=== PATIENT | female | born 1980 | race Caucasian/White ===

== ENCOUNTER 2020-08-16 16:18 | Emergency (ER) | payer MEDICAID ==
[~2020-08-16] VITALS: Ht 162.6 cm; Wt 70.5 kg
[2020-08-16 17:12] LABS: COVID AG,FIA SOURCE NASOPHARYNGEAL
[2020-08-16 17:23] LABS: BASOPHILS % (AUTO) 0.4 % (0.0-2.0); EOSINOPHILS % (AUTO) 1.8 % (1.0-6.0); HEMOGLOBIN 12.8 g/dL (12.0-16.0); LYMPHOCYTES # (AUTO) 1.5 K/uL (1.0-4.8); LYMPHOCYTES % (AUTO) 27.2 % (22.0-44.0); MEAN CORPUSCULAR HGB CONC 31.2 G/dL (31.0-37.0); MEAN CORPUSCULAR VOLUME 71 fL (80-100); MONOCYTES # (AUTO) 0.5 K/uL (0.1-1.0); MONOCYTES % (AUTO) 9.2 % (2.0-9.0); NEUTROPHILS # (AUTO) 3.4 K/uL (1.8-7.7); NEUTROPHILS % (AUTO) 61.4 % (40.0-70.0); PLATELET COUNT (AUTO) 149 K/uL (150-450); RED CELL DISTRIBUTION WIDTH 20.2 % (11.5-14.5)
[2020-08-16 17:34] LABS: CALCIUM, TOTAL 8.6 mg/dL (8.8-10.5); CARBON DIOXIDE 23 mmol/L (22-29); GLOMERULAR FILTR. RATE CALC > 60 mL/min (>60); GLUCOSE,RANDOM 112 mg/dL (70-110); UREA NITROGEN, BLOOD 21 mg/dL (7-18)
[2020-08-16 17:45] LABS: ALANINE AMINOTRANSFERASE 72 U/L (12-78); ALBUMIN 3.2 g/dL (3.4-5.0); ALKALINE PHOSPHATASE 146 U/L (46-116); ASPARTATE AMINOTRANSFERASE 97 U/L (15-37); BILIRUBIN,TOTAL 0.9 mg/dL (0.1-1.0); HCG,QUANTITATIVE 1 mIU/mL (0-6); TOTAL PROTEIN, SERUM 7.8 g/dL (6.4-8.2)
[2020-08-16] MEDS ORDERED: NITROGLYCERIN 50 MG/D5% WATER 250 ML IV PRN (17:45)
[2020-08-16 17:47] LABS: B-TYPE NATRIURETIC PEPTIDE 606 pg/mL (0-100)
[2020-08-16 17:49] LABS: ANION GAP 11 mmol/L (8-16); CHLORIDE 105 mmol/L (98-107); POTASSIUM 4.6 mmol/L (3.5-5.1); SODIUM SERUM 139 mmol/L (136-145)
[2020-08-16 17:52] VITALS: BP 163/111
[2020-08-16] MEDS ORDERED: FUROSEMIDE 40 MG/4 ML VIAL IVP ONE (18:00)
[2020-08-16] MEDS ORDERED: IOHEXOL 350 MG/ML 75 ML VIAL ONE (18:21)
[2020-08-16] MEDS ORDERED: SODIUM CHLORIDE 0.9% 100 ML ONE (18:21)
[2020-08-16] MEDS ORDERED: ACETAMINOPHEN 325 MG TABLET PO PRN (19:00)
[2020-08-16] MEDS ORDERED: ONDANSETRON HCL 4 MG/2 ML VIAL IVP PRN (19:00)
== END 2020-08-16 19:08 | disposition left against medical advice (07) ==
LOC: EMS 16:38
DX: I11.0 Hypertensive heart disease with heart failure (principal); I50.9 Heart failure, unspecified; F17.210 Nicotine dependence, cigarettes, uncomplicated; Z20.822 Contact with and (suspected) exposure to COVID-19
CPT/HCPCS: 36415; 71045; 80053; 83880; 84484; 84702; 85025; 85379; 87426; 93005; 96374; 99291; A9575; J1940; J3490; J7050

== ENCOUNTER 2020-08-30 22:41 | Emergency (ER) | payer MEDICAID ==
[~2020-08-30] VITALS: Ht 162.6 cm; Wt 79.0 kg
[2020-08-30 23:33] LABS: SOURCE, BLOOD GAS ARTERIAL; TEMPERATURE, FAHRENHEIT, BG 98.6 FAHREN (96.0-98.6)
[2020-08-30] MEDS ORDERED: NITROGLYCERIN 2% (1 GM=INCH) PACKET TP ONE (23:45)
[2020-08-30] MEDS ORDERED: ASPIRIN 81 MG CHEWABLE TABLET PO ONE (23:45)
[2020-08-30 23:46] LABS: ABG A-A DIFF O2 617.4 mmHg (10-20.0); ABG BASE EXCESS -3.2 mmol/L (-2.0-3.0); ABG CARBOXYHEMOGLOBIN 0.9 % (0.0-1.5); ABG HCO3 22.7 mmol/L (22.0-26.0); ABG METHEMOGLOBIN 0.2 % (0.0-1.5); ABG OXYGEN CONTENT 15.7 mL/dL (15.0-23.0); ABG OXYGEN SATURATION 93.3 % (95.0-98.0); ABG OXYHEMOGLOBIN 92.3 % (94.0-100.0); ABG PCO2 28 mmHg (35-45); ABG PH 7.481 (7.35-7.450); ABG TOTAL HEMOGLOBIN 12.1 G/dL (12.0-18.0); O2 DEVICE,BLOOD GAS NRB (ROOM AIR); PO2, ARTERIAL BG 67.8 mmHg (88.0-96.0); SITE, BLOOD GAS RT BRACHIAL
[2020-08-30 23:48] LABS: BASOPHILS % (AUTO) 0.2 % (0.0-2.0); EOSINOPHILS % (AUTO) 2.2 % (1.0-6.0); HEMATOCRIT 37.6 % (36-46); HEMOGLOBIN 11.6 g/dL (12.0-16.0); LYMPHOCYTES # (AUTO) 2.5 K/uL (1.0-4.8); LYMPHOCYTES % (AUTO) 34.2 % (22.0-44.0); MEAN CORPUSCULAR HEMOGLOBIN 21.6 pg (26.0-34.0); MEAN CORPUSCULAR HGB CONC 30.8 G/dL (31.0-37.0); MEAN CORPUSCULAR VOLUME 70 fL (80-100); MONOCYTES # (AUTO) 0.9 K/uL (0.1-1.0); MONOCYTES % (AUTO) 12.8 % (2.0-9.0); NEUTROPHILS # (AUTO) 3.7 K/uL (1.8-7.7); NEUTROPHILS % (AUTO) 50.6 % (40.0-70.0); PLATELET COUNT (AUTO) 128 K/uL (150-450); RED BLOOD CELL COUNT(AUTO) 5.34 MIL/uL (4.00-5.20); RED CELL DISTRIBUTION WIDTH 19.9 % (11.5-14.5)
[2020-08-30 23:55] LABS: COVID AG,FIA SOURCE NASOPHARYNGEAL
[2020-08-30 23:58] LABS: ANION GAP 12 mmol/L (8-16); CALCIUM, TOTAL 8.2 mg/dL (8.8-10.5); CARBON DIOXIDE 20 mmol/L (22-29); CHLORIDE 107 mmol/L (98-107); CREATININE 0.81 mg/dL (0.60-1.30); GLOMERULAR FILTR. RATE CALC > 60 mL/min (>60); GLUCOSE,RANDOM 82 mg/dL (70-110); POTASSIUM 3.7 mmol/L (3.5-5.1); SODIUM SERUM 139 mmol/L (136-145); UREA NITROGEN, BLOOD 24 mg/dL (7-18)
[2020-08-31 00:03] LABS: INR 1.2 (0.9-1.1); PROTHROMBIN TIME 12.6 SEC (9.4-11.6)
[2020-08-31 00:05] LABS: B-TYPE NATRIURETIC PEPTIDE 651 pg/mL (0-100)
[2020-08-31 00:07] LABS: LACTIC ACID 1.5 mmol/L (0.4-2.0)
[2020-08-31 00:23] LABS: ALANINE AMINOTRANSFERASE 53 U/L (12-78); ALBUMIN 2.8 g/dL (3.4-5.0); ALKALINE PHOSPHATASE 131 U/L (46-116); ASPARTATE AMINOTRANSFERASE 68 U/L (15-37); BILIRUBIN,TOTAL 0.9 mg/dL (0.1-1.0); CREATINE KINASE, TOTAL ONLY 176 U/L (26-192); TOTAL PROTEIN, SERUM 6.9 g/dL (6.4-8.2)
[2020-08-31] MEDS ORDERED: FUROSEMIDE 40 MG/4 ML VIAL IVP ONE (00:45)
[2020-08-31] MEDS ORDERED: NITROGLYCERIN 0.4 MG SUBLINGUAL TABLET #25 SL ONE (00:45)
[2020-08-31] MEDS ORDERED: HydrALAZINE HCL 20 MG/ML VIAL IVP ONE ×2 (01:00→01:30)
[2020-08-31] MEDS ORDERED: ONDANSETRON HCL 4 MG/2 ML VIAL IVP ONE (01:15)
[2020-08-31] MEDS ORDERED: MORPHINE SULFATE 4 MG/ML SYRINGE IVP ONE (01:15)
[2020-08-31 01:16] LABS: INFLUENZA TYPE A NEGATIVE FOR TYPE A (NEGATIVE); INFLUENZA TYPE B NEGATIVE FOR TYPE B (NEGATIVE)
[2020-08-31 01:37] LABS: APPEARANCE,URINE CLEAR (CLEAR); BILIRUBIN,URINE NEGATIVE (NEGATIVE); GLUCOSE, URINE (UA) NEGATIVE (NEGATIVE); KETONES,URINE NEGATIVE (NEGATIVE); LEUKOCYTE ESTERASE ,URINE SMALL (NEGATIVE); NITRATE,URINE NEGATIVE (NEGATIVE); OCCULT BLOOD,URINE TRACE (NEGATIVE); PROTEIN,URINE NEGATIVE (NEGATIVE)
[2020-08-31 01:47] LABS: BACTERIA,URINE Few /HPF (None Seen); RBC,URINE 0-2 /HPF (0-2); SQUAMOUS EPITHELIAL CELL,UR Rare /LPF (None Seen)
[2020-08-31] MEDS ORDERED: SODIUM CHLORIDE 0.9% 0 ML ONE (01:51)
[2020-08-31] MEDS ORDERED: IOHEXOL 350 MG/ML 100 ML VIAL ONE (01:51)
[2020-08-31] MEDS ORDERED: ASPIRIN 81 MG CHEWABLE TABLET PO SCH (02:30)
[2020-08-31] MEDS ORDERED: ACETAMINOPHEN 325 MG TABLET PO PRN (02:30)
[2020-08-31] MEDS ORDERED: DILTIAZEM HCL 5 MG/ML 5 ML VIAL IVP ONE (02:30)
[2020-08-31] MEDS ORDERED: ONDANSETRON HCL 4 MG/2 ML VIAL IVP PRN (02:30)
[2020-08-31 02:39] LABS: AMPHET/METH SCREEN,URINE POSITIVE (NEGATIVE); BARBITURATE SCREEN, URINE NEGATIVE (NEGATIVE); BENZODIAZEPINES SCREEN,URINE NEGATIVE (NEGATIVE); CANNABINOID SCREEN,URINE NEGATIVE (NEGATIVE); COCAINE SCREEN,URINE NEGATIVE (NEGATIVE); METHADONE SCREEN, URINE NEGATIVE (NEGATIVE); OPIATE SCREEN,URINE NEGATIVE (NEGATIVE)
[2020-08-31 02:42] LABS: PHENCYCLIDINE SCREEN,URINE NEGATIVE (NEGATIVE)
[2020-08-31 03:48] LABS: D-DIMER 0.45 mg/L FEU (0.00-0.50)
[2020-08-31 04:20] VITALS: BP 157/97
[2020-08-31] MEDS ORDERED: HEPARIN SODIUM,PORCINE 5,000 UNITS/ML VIAL SQ SCH (08:00)
[2020-08-31] MEDS ORDERED: FUROSEMIDE 40 MG/4 ML VIAL IVP SCH (09:00)
== END 2020-08-31 04:25 | disposition left against medical advice (07) ==
LOC: EMS 22:43 → UNDOADMIN 08-31 02:25 → ICU 08-31 02:25 → 5S 08-31 02:25 → EMS 08-31 04:25
DX: I11.0 Hypertensive heart disease with heart failure (principal); I50.9 Heart failure, unspecified; R06.89 Other abnormalities of breathing; F17.210 Nicotine dependence, cigarettes, uncomplicated; Z20.822 Contact with and (suspected) exposure to COVID-19
CPT/HCPCS: 36415; 36600; 71045; 80053; 80307; 81001; 82550; 82805; 83605; 83880; 84484; 85025; 85379; 85610; 85730; 87040; 87426; 87804; 93005; 96374; 96375; 96376; 99291; J0360; J1940; J2270; J2405; J3490; U0003; A9575; J7050

== ENCOUNTER 2024-01-31 13:00 | Inpatient (IN) | payer OTHER ==
[~2024-01-31] VITALS: Ht 162.6 cm; Wt 76.5 kg
[~2024-01-31 13:00] MED LIST: ALBU18HF12 PO; ASPI-1450 PO; ATOR20TA65 PO; CARV6 PO; FLUT1DIS6 PO; FOLI-130 PO; FURO40TA5 PO; ISOS30TA92 PO; PANT40TA54 PO; POTA-206 PO; SILD20TA14 PO; THIA100T80 PO; TRAZ-252 PO
[2024-01-31 13:44] LABS: BASOPHILS % (AUTO) 0.3 % (0.0-2.0); EOSINOPHILS % (AUTO) 0.9 % (1.0-6.0); HEMATOCRIT 51.4 % (36-46); HEMOGLOBIN 16.9 g/dL (12.0-16.0); LYMPHOCYTES # (AUTO) 1.8 K/uL (1.0-4.8); LYMPHOCYTES % (AUTO) 31.5 % (22.0-44.0); MEAN CORPUSCULAR HEMOGLOBIN 30.9 pg (26.0-34.0); MEAN CORPUSCULAR HGB CONC 32.9 G/dL (31.0-37.0); MEAN CORPUSCULAR VOLUME 94 fL (80-100); MONOCYTES # (AUTO) 0.6 K/uL (0.1-1.0); MONOCYTES % (AUTO) 10.1 % (2.0-9.0); NEUTROPHILS # (AUTO) 3.2 K/uL (1.8-7.7); NEUTROPHILS % (AUTO) 57.2 % (40.0-70.0); PLATELET COUNT (AUTO) 112 K/uL (150-450); RED BLOOD CELL COUNT(AUTO) 5.47 MIL/uL (4.00-5.20); RED CELL DISTRIBUTION WIDTH 16.3 % (11.5-14.5); WHITE BLOOD COUNT (AUTO) 5.6 K/uL (4.5-11.0)
[2024-01-31] MEDS: FUROSEMIDE 20 MG/2 ML VIAL IVP ONE (13:53)
[2024-01-31 13:56] LABS: COVID AG,FIA SOURCE NASAL SWAB
[2024-01-31 14:04] LABS: CALCIUM, TOTAL 8.7 mg/dL (8.8-10.5); CREATININE 1.21 mg/dL (0.60-1.30); POTASSIUM 3.9 mmol/L (3.5-5.1); TROPONIN I-HIGH SENSITIVITY 65 ng/L (<51)
[2024-01-31 14:17] LABS: SARS-COV2 (COVID) ANTIGEN,FIA Negative (Negative)
[2024-01-31 14:18] LABS: INFLUENZA TYPE A NEGATIVE FOR TYPE A (NEGATIVE); INFLUENZA TYPE B NEGATIVE FOR TYPE B (NEGATIVE)
[2024-01-31 14:28] LABS: ALBUMIN 3.4 g/dL (3.4-5.0); BILIRUBIN,TOTAL 2.5 mg/dL (0.1-1.0); TOTAL PROTEIN, SERUM 7.9 g/dL (6.4-8.2)
[2024-01-31 14:47] LABS: MAGNESIUM 1.9 mg/dL (1.80-2.40)
[2024-01-31] MEDS: ASPIRIN 81 MG CHEWABLE TABLET PO ONE (15:50)
[2024-01-31] MEDS ORDERED: ALBUTEROL SULFATE 2.5 MG/0.5 ML NEB SOLUTION NEB PRN (16:00)
[2024-01-31] MEDS ORDERED: IPRATROPIUM BROMIDE 0.5 MG/2.5 ML NEB SOLUTION NEB PRN (16:00)
[2024-01-31 16:16] LABS: TROPONIN I-HIGH SENSITIVITY 52 ng/L (<51)
[2024-01-31 16:40] VITALS: PULSE 95; RESP 20; O2SAT 92
[2024-01-31] MEDS ORDERED: 0.9% SODIUM CHLORIDE 10 ML SYRINGE IVP ONE (17:40)
[2024-01-31] MEDS ORDERED: SODIUM CHLORIDE 0.9% 0 ML ONE (17:40)
[2024-01-31] MEDS ORDERED: IOHEXOL 350 MG/ML 100 ML VIAL ONE (17:40)
[2024-01-31] MEDS: BENZONATATE 100 MG CAPSULE PO SCH (17:44)
[2024-01-31] MEDS: MethylPREDNISolone SOD SUCC 125 MG/2 ML VIAL IVP SCH (17:44)
[2024-01-31] MEDS: SILDENAFIL CITRATE 20 MG TABLET PO SCH (17:44)
[2024-01-31] MEDS: IPRATROPIUM BROMIDE 0.5 MG/2.5 ML NEB SOLUTION NEB SCH (20:00)
[2024-01-31] MEDS: ALBUTEROL SULFATE 2.5 MG/0.5 ML NEB SOLUTION NEB SCH (20:00)
[2024-01-31] MEDS: GuaiFENesin SR 600 MG ER TABLET PO SCH (20:42)
[2024-01-31] MEDS: FUROSEMIDE 20 MG/2 ML VIAL IVP SCH (20:42)
[2024-01-31] MEDS: ATORVASTATIN CALCIUM 20 MG TABLET PO SCH (20:42)
[2024-01-31] MEDS: TraZODone HCL 50 MG TABLET PO SCH (20:42)
[2024-01-31] MEDS: CARVEDILOL 12.5 MG TABLET PO SCH (21:47)
[2024-02-01] VITALS (11 sets, daily range): BP systolic 92–113; BP diastolic 53–75; PULSE 61–71; RESP 13–23; TEMP 97.1–98.7; O2SAT 90–96
[2024-02-01 07:18] LABS: BASOPHILS % (AUTO) 0.3 % (0.0-2.0); EOSINOPHILS % (AUTO) 0.2 % (1.0-6.0); HEMATOCRIT 47.4 % (36-46); LYMPHOCYTES # (AUTO) 0.7 K/uL (1.0-4.8); LYMPHOCYTES % (AUTO) 19.2 % (22.0-44.0); MEAN CORPUSCULAR HEMOGLOBIN 31.4 pg (26.0-34.0); MEAN CORPUSCULAR HGB CONC 33.8 G/dL (31.0-37.0); MEAN CORPUSCULAR VOLUME 93 fL (80-100); MONOCYTES # (AUTO) 0.1 K/uL (0.1-1.0); MONOCYTES % (AUTO) 2.1 % (2.0-9.0); NEUTROPHILS % (AUTO) 78.2 % (40.0-70.0); PLATELET COUNT (AUTO) 97 K/uL (150-450); RED CELL DISTRIBUTION WIDTH 16.2 % (11.5-14.5); WHITE BLOOD COUNT (AUTO) 3.9 K/uL (4.5-11.0)
[2024-02-01 07:32] LABS: ANION GAP 9 mmol/L (8-16); CALCIUM, TOTAL 8.6 mg/dL (8.8-10.5); CARBON DIOXIDE 23 mmol/L (22-29); CHLORIDE 104 mmol/L (98-107); CREATININE 0.98 mg/dL (0.60-1.30); GLOMERULAR FILTR. RATE CALC > 60 mL/min (>60); GLUCOSE,RANDOM 135 mg/dL (70-110); POTASSIUM 3.6 mmol/L (3.5-5.1); SODIUM SERUM 136 mmol/L (136-145); UREA NITROGEN, BLOOD 26 mg/dL (7-18)
[2024-02-01] MEDS: THIAMINE 100 MG TABLET PO SCH (08:24)
[2024-02-01] MEDS: ASPIRIN 81 MG CHEWABLE TABLET PO SCH (08:25)
[2024-02-01] MEDS: ISOSORBIDE MONONITRATE 30 MG ER TABLET PO SCH (08:25)
[2024-02-01] MEDS ORDERED: MORPHINE SULFATE 2 MG/ML SYRINGE IVP PRN (11:15)
[2024-02-01] MEDS ORDERED: MAGNESIUM HYDROXIDE SUSPENSION 30 ML UDCUP PO PRN (11:15)
[2024-02-01] MEDS ORDERED: BISACODYL 10 MG RECTAL RECTAL SUPPOSITORY PR PRN (11:15)
[2024-02-01] MEDS ORDERED: HYDROCODONE/ACETAMINOPHEN 5-325 MG TABLET PO PRN (11:15)
[2024-02-01] MEDS ORDERED: ZOLPIDEM TARTRATE 5 MG TABLET PO PRN (11:15)
[2024-02-01 12:32] LABS: PH,URINE DRUG SCREEN 5.5 (5.0-8.0)
[2024-02-01 12:50] LABS: ALCOHOL, URINE DRUG SCREEN NEGATIVE (NEGATIVE); AMPHET/METH SCREEN,URINE POSITIVE (NEGATIVE); BARBITURATE SCREEN, URINE NEGATIVE (NEGATIVE); BENZODIAZEPINES SCREEN,URINE NEGATIVE (NEGATIVE); CANNABINOID SCREEN,URINE POSITIVE (NEGATIVE); COCAINE SCREEN,URINE NEGATIVE (NEGATIVE); METHADONE SCREEN, URINE NEGATIVE (NEGATIVE); OPIATE SCREEN,URINE NEGATIVE (NEGATIVE); PHENCYCLIDINE SCREEN,URINE NEGATIVE (NEGATIVE)
[2024-02-01] MEDS ORDERED: SODIUM CHLORIDE 0.9% 100 ML ONE (13:39)
[2024-02-01] MEDS ORDERED: IOHEXOL 350 MG/ML 100 ML VIAL ONE (13:39)
[2024-02-01 13:50] LABS: APPEARANCE,URINE CLEAR (CLEAR); BILIRUBIN,URINE NEGATIVE (NEGATIVE); COLOR,URINE YELLOW (YELLOW); GLUCOSE, URINE (UA) NEGATIVE (NEGATIVE); KETONES,URINE NEGATIVE (NEGATIVE); LEUKOCYTE ESTERASE ,URINE NEGATIVE (NEGATIVE); NITRATE,URINE NEGATIVE (NEGATIVE); OCCULT BLOOD,URINE NEGATIVE (NEGATIVE); PH,URINE 5.5 (5.0-8.0); PROTEIN,URINE NEGATIVE (NEGATIVE); SPECIFIC GRAVITIY, URINE 1.015 (1.003-1.030); UROBILINOGEN,URINE <=1.0 mg/dL (<=1.0)
[2024-02-01] MEDS: HEPARIN SODIUM,PORCINE 5,000 UNITS/ML VIAL SQ SCH (16:21)
[2024-02-01 17:54] LABS: ABG BASE EXCESS -3.4 mmol/L (-2.0-3.0); ABG CARBOXYHEMOGLOBIN 0.6 % (0.5-1.5); ABG HCO3 22.5 mmol/L (21.0-28.0); ABG METHEMOGLOBIN 0.2 % (0.0-1.5); ABG OXYGEN CONTENT 19.5 mL/dL (15.0-23.0); ABG OXYGEN SATURATION 90.3 % (94.0-98.0); ABG OXYHEMOGLOBIN 89.6 % (94.0-98.0); ABG PCO2 29 mmHg (32.0-45.0); ABG PH 7.463 (7.350-7.450); ABG TOTAL HEMOGLOBIN 15.5 G/dL (12.0-16.0); PO2, ARTERIAL BG 57.5 mmHg (83.0-108.0); SOURCE, BLOOD GAS ARTERIAL; TEMPERATURE, FAHRENHEIT, BG 97.1 FAHREN (96.0-98.6)
[2024-02-01 17:56] LABS: ABG A-A DIFF O2 628.4 mmHg (10-20.0); ALLEN TEST, BLOOD GAS Positive; SITE, BLOOD GAS LFT RADIAL
[2024-02-01 17:57] LABS: O2 DEVICE,BLOOD GAS HI FL CANNULA (ROOM AIR)
[2024-02-01] MEDS ORDERED: DEXMEDETOMIDINE HCL 400 MCG in SODIUM CHLORIDE 0.9% 96 ML IV PRN (18:00)
[2024-02-01] MEDS: SILDENAFIL CITRATE 20 MG TABLET PO SCH (18:20)
[2024-02-01] MEDS ORDERED: SILDENAFIL CITRATE 20 MG TABLET PO SCH (21:00)
[2024-02-01] MEDS: DOCUSATE SODIUM 100 MG CAPSULE PO SCH (21:00)
[2024-02-01] MEDS: MIDODRINE HCL 5 MG TABLET PO SCH (22:21)
[2024-02-02] VITALS (19 sets, daily range): BP systolic 97–116; BP diastolic 60–80; PULSE 63–88; RESP 12–18; TEMP 97.6–98.4; O2SAT 85–96
[2024-02-02 08:33] LABS: CALCIUM, TOTAL 8.5 mg/dL (8.8-10.5); CREATININE 1.16 mg/dL (0.60-1.30); HEMATOCRIT 45.5 % (36-46); MEAN CORPUSCULAR HEMOGLOBIN 30.8 pg (26.0-34.0); MEAN CORPUSCULAR VOLUME 94 fL (80-100); PLATELET COUNT (AUTO) 120 K/uL (150-450); RED BLOOD CELL COUNT(AUTO) 4.87 MIL/uL (4.00-5.20); RED CELL DISTRIBUTION WIDTH 16.3 % (11.5-14.5); WHITE BLOOD COUNT (AUTO) 18.4 K/uL (4.5-11.0)
[2024-02-02 09:11] LABS: BAND NEUTROPHILS % (MANUAL) 3 % (0-5); LYMPHOCYTES % (MANUAL) 4 % (22-44); MONOCYTES % (MANUAL) 4 % (2-9); RBC MORPHOLOGY COMMENT NORMAL RBC MORPH; SEGMENTED NEUTROPHILS % 89 % (40-70); TOTAL CELLS COUNTED 100
[2024-02-02] MEDS: PANTOPRAZOLE SODIUM 40 MG DR TABLET PO SCH (09:29)
[2024-02-02] MEDS: SILDENAFIL CITRATE 20 MG TABLET PO SCH (16:48)
[2024-02-03] VITALS (16 sets, daily range): BP systolic 92–109; BP diastolic 60–73; PULSE 54–78; RESP 16–18; TEMP 97.7–98; O2SAT 88–95
[2024-02-03] MEDS: ONDANSETRON HCL 4 MG/2 ML VIAL IVP PRN (03:19)
[2024-02-03 06:33] LABS: BASOPHILS % (AUTO) 0.1 % (0.0-2.0); EOSINOPHILS % (AUTO) 0.1 % (1.0-6.0); HEMATOCRIT 44.4 % (36-46); HEMOGLOBIN 14.8 g/dL (12.0-16.0); LYMPHOCYTES # (AUTO) 0.4 K/uL (1.0-4.8); MEAN CORPUSCULAR HEMOGLOBIN 31.2 pg (26.0-34.0); MEAN CORPUSCULAR HGB CONC 33.4 G/dL (31.0-37.0); MEAN CORPUSCULAR VOLUME 93 fL (80-100); MONOCYTES # (AUTO) 0.3 K/uL (0.1-1.0); MONOCYTES % (AUTO) 2.1 % (2.0-9.0); NEUTROPHILS # (AUTO) 13.4 K/uL (1.8-7.7); PLATELET COUNT (AUTO) 110 K/uL (150-450); RED BLOOD CELL COUNT(AUTO) 4.76 MIL/uL (4.00-5.20); RED CELL DISTRIBUTION WIDTH 16.3 % (11.5-14.5); WHITE BLOOD COUNT (AUTO) 14.1 K/uL (4.5-11.0)
[2024-02-03 07:00] LABS: CALCIUM, TOTAL 8.3 mg/dL (8.8-10.5); NEUTROPHILS % (AUTO) 94.7 % (40.0-70.0); POTASSIUM 3.9 mmol/L (3.5-5.1)
[2024-02-04] VITALS (13 sets, daily range): BP systolic 90–114; BP diastolic 46–86; PULSE 53–80; RESP 17–20; TEMP 97.4–98.3; O2SAT 91–96
[2024-02-04 06:48] LABS: CALCIUM, TOTAL 8.3 mg/dL (8.8-10.5); CREATININE 1.06 mg/dL (0.60-1.30); POTASSIUM 4.2 mmol/L (3.5-5.1)
[2024-02-04 07:42] LABS: HEMOGLOBIN 15.4 g/dL (12.0-16.0); MEAN CORPUSCULAR HEMOGLOBIN 31.3 pg (26.0-34.0); MEAN CORPUSCULAR HGB CONC 33.4 G/dL (31.0-37.0); MEAN CORPUSCULAR VOLUME 94 fL (80-100); PLATELET COUNT (AUTO) 113 K/uL (150-450); RED CELL DISTRIBUTION WIDTH 16.3 % (11.5-14.5); WHITE BLOOD COUNT (AUTO) 11.3 K/uL (4.5-11.0)
[2024-02-04 08:58] LABS: BAND NEUTROPHILS % (MANUAL) 2 % (0-5); LYMPHOCYTES % (MANUAL) 8 % (22-44); MONOCYTES % (MANUAL) 4 % (2-9); SEGMENTED NEUTROPHILS % 86 % (40-70); TOTAL CELLS COUNTED 100
[2024-02-04 08:59] LABS: RBC MORPHOLOGY COMMENT NORMAL RBC MORPH
[2024-02-04] MEDS: ACETAMINOPHEN 325 MG TABLET PO PRN (12:05)
[2024-02-05] VITALS (8 sets, daily range): BP systolic 101–107; BP diastolic 61–75; PULSE 50–65; RESP 18–20; TEMP 97.4–98.1; O2SAT 89–98
[2024-02-05 06:44] LABS: BASOPHILS % (AUTO) 0.1 % (0.0-2.0); EOSINOPHILS % (AUTO) 0 % (1.0-6.0); HEMOGLOBIN 14.9 g/dL (12.0-16.0); LYMPHOCYTES # (AUTO) 0.3 K/uL (1.0-4.8); LYMPHOCYTES % (AUTO) 3.6 % (22.0-44.0); MEAN CORPUSCULAR HEMOGLOBIN 31.5 pg (26.0-34.0); MEAN CORPUSCULAR HGB CONC 33.8 G/dL (31.0-37.0); MEAN CORPUSCULAR VOLUME 93 fL (80-100); MONOCYTES # (AUTO) 0.3 K/uL (0.1-1.0); MONOCYTES % (AUTO) 3.1 % (2.0-9.0); NEUTROPHILS # (AUTO) 8.1 K/uL (1.8-7.7); PLATELET COUNT (AUTO) 102 K/uL (150-450); RED BLOOD CELL COUNT(AUTO) 4.72 MIL/uL (4.00-5.20); RED CELL DISTRIBUTION WIDTH 16.1 % (11.5-14.5)
[2024-02-05 06:59] LABS: CALCIUM, TOTAL 8.2 mg/dL (8.8-10.5); CREATININE 1.21 mg/dL (0.60-1.30); POTASSIUM 4.5 mmol/L (3.5-5.1)
[2024-02-05 07:06] LABS: NEUTROPHILS % (AUTO) 93.2 % (40.0-70.0)
[2024-02-05 07:07] LABS: RBC MORPHOLOGY COMMENT NORMAL RBC MORPH
== END 2024-02-05 14:08 | disposition left against medical advice (07) | DRG 190 ==
LOC: EMS 13:00 → EDH 22:02 → 5S 02-01 01:20 → ICU 02-01 13:48 → 5S 02-02 02:55
PROVIDERS: ADMIT Internal Medicine; ATTEND Internal Medicine
PROC: 5A0935A Assistance with Respiratory Ventilation, Less than 24 Consecutive Hours, High Flow/Velocity Cannula (ICD-10-PCS; principal; 2024-01-31)
PROC: 5A0935A Assistance with Respiratory Ventilation, Less than 24 Consecutive Hours, High Flow/Velocity Cannula (ICD-10-PCS; 2024-02-01)
PROC: 5A0945A Assistance with Respiratory Ventilation, 24-96 Consecutive Hours, High Flow/Velocity Cannula (ICD-10-PCS; 2024-02-02)
DX: I21.4 Non-ST elevation (NSTEMI) myocardial infarction (principal); J96.01 Acute respiratory failure with hypoxia; I50.23 Acute on chronic systolic (congestive) heart failure; E44.0 Moderate protein-calorie malnutrition; I27.20 Pulmonary hypertension, unspecified; D69.6 Thrombocytopenia, unspecified; J44.1 Chronic obstructive pulmonary disease with (acute) exacerbation; I42.7 Cardiomyopathy due to drug and external agent; I13.0 Hypertensive heart and chronic kidney disease with heart failure and stage 1 through stage 4 chronic kidney disease, or unspecified chronic kidney disease; Z20.822 Contact with and (suspected) exposure to COVID-19; F15.10 Other stimulant abuse, uncomplicated; Z91.199 Patient's noncompliance with other medical treatment and regimen due to unspecified reason; E78.5 Hyperlipidemia, unspecified; Z53.21 Procedure and treatment not carried out due to patient leaving prior to being seen by health care provider; J96.21 Acute and chronic respiratory failure with hypoxia; N18.30 Chronic kidney disease, stage 3 unspecified; Z59.00 Homelessness unspecified; Z87.891 Personal history of nicotine dependence; Z91.148 Patient's other noncompliance with medication regimen for other reason; Z79.82 Long term (current) use of aspirin; Z79.899 Other long term (current) drug therapy; Z68.28 Body mass index [BMI] 28.0-28.9, adult
CPT/HCPCS: 36600; 71045; 71275; 80048; 80053; 80307; 81003; 82550; 82805; 83735; 83880; 84100; 84484; 84703; 85025; 87081; 87481; 87804; 93005; 93306; 94640; 97116; 97162; 99285; G0378; G0480; J1644; J1940; J2405; J2919; J7050; 36415-L1; 36415-TC; J7613

== ENCOUNTER 2024-03-12 12:31 | Emergency (ER) | payer OTHER ==
[~2024-03-12] VITALS: Ht 162.6 cm; Wt 65.9 kg
[~2024-03-12 12:31] MED LIST changes: +FLUT1BLS6 PO; -FLUT1DIS6 PO
[2024-03-12] MEDS ORDERED: BUME1TAB50 PO (12:37)
[2024-03-12 12:38] VITALS: BP 128/84; PULSE 108; RESP 20; TEMP 98.4; O2SAT 99
[2024-03-12 13:04] LABS: COVID AG,FIA SOURCE NASAL SWAB
[2024-03-12 13:27] LABS: SARS-COV2 (COVID) ANTIGEN,FIA Negative (Negative)
[2024-03-12 13:28] LABS: INFLUENZA TYPE A POSITIVE FOR TYPE A (NEGATIVE)
[2024-03-12 13:29] LABS: INFLUENZA TYPE B NEGATIVE FOR TYPE B (NEGATIVE)
[2024-03-12] MEDS ORDERED: IBUP-1554 PO (14:28)
[2024-03-12] MEDS ORDERED: GUAIFDM PO (14:28)
[2024-03-12] MEDS ORDERED: ACET-2080 PO (14:28)
== END 2024-03-12 14:47 | disposition left against medical advice (07) ==
LOC: EMS 12:31
DX: J10.1 Influenza due to other identified influenza virus with other respiratory manifestations (principal); J20.9 Acute bronchitis, unspecified; F15.10 Other stimulant abuse, uncomplicated; I11.0 Hypertensive heart disease with heart failure; I50.9 Heart failure, unspecified; F17.210 Nicotine dependence, cigarettes, uncomplicated; Z59.00 Homelessness unspecified; Z79.82 Long term (current) use of aspirin; Z79.899 Other long term (current) drug therapy; Z20.822 Contact with and (suspected) exposure to COVID-19
CPT/HCPCS: 87804; 99283

== ENCOUNTER 2024-05-10 16:58 | Emergency (ER) | payer OTHER ==
[~2024-05-10] VITALS: Ht 162.6 cm; Wt 68.0 kg
[~2024-05-10 16:58] MED LIST changes: +ACET-2080 PO; -ATOR20TA65 PO; +BUME1TAB50 PO; -CARV6 PO; -FLUT1BLS6 PO; -FOLI-130 PO; -FURO40TA5 PO; +GUAIFDM PO; +IBUP-1554 PO; -ISOS30TA92 PO; -PANT40TA54 PO; -POTA-206 PO; -SILD20TA14 PO; -THIA100T80 PO; -TRAZ-252 PO
[2024-05-10 17:20] VITALS: TEMP 97.5
[2024-05-10 18:26] LABS: ANION GAP 10 mmol/L (8-16); BASOPHILS % (AUTO) 0.6 % (0.0-2.0); CARBON DIOXIDE 25 mmol/L (22-29); CHLORIDE 104 mmol/L (98-107); EOSINOPHILS % (AUTO) 0.8 % (1.0-6.0); GLUCOSE,RANDOM 84 mg/dL (70-110); HEMOGLOBIN 16.2 g/dL (12.0-16.0); LYMPHOCYTES # (AUTO) 1.8 K/uL (1.0-4.8); LYMPHOCYTES % (AUTO) 33.4 % (22.0-44.0); MEAN CORPUSCULAR HEMOGLOBIN 30.9 pg (26.0-34.0); MEAN CORPUSCULAR VOLUME 94 fL (80-100); MONOCYTES # (AUTO) 0.6 K/uL (0.1-1.0); NEUTROPHILS % (AUTO) 54.2 % (40.0-70.0); PLATELET COUNT (AUTO) 100 K/uL (150-450); POTASSIUM 4.2 mmol/L (3.5-5.1); RED BLOOD CELL COUNT(AUTO) 5.23 MIL/uL (4.00-5.20); RED CELL DISTRIBUTION WIDTH 16.4 % (11.5-14.5); SODIUM SERUM 139 mmol/L (136-145); UREA NITROGEN, BLOOD 24 mg/dL (7-18); WHITE BLOOD COUNT (AUTO) 5.5 K/uL (4.5-11.0)
[2024-05-10 18:27] LABS: CALCIUM, TOTAL 9.3 mg/dL (8.8-10.5); GLOMERULAR FILTR. RATE CALC 54 mL/min (>60)
[2024-05-10 18:33] LABS: PROTHROMBIN TIME 14.6 SEC (9.4-11.6)
[2024-05-10 18:36] LABS: CREATINE KINASE, TOTAL ONLY 167 U/L (26-192)
[2024-05-10 18:37] LABS: B-TYPE NATRIURETIC PEPTIDE 668 pg/mL (0-100); TROPONIN I-HIGH SENSITIVITY 69 ng/L (<51)
[2024-05-10 20:00] VITALS: BP 140/80; PULSE 86; RESP 20; O2SAT 92
== END 2024-05-10 20:41 | disposition left against medical advice (07) ==
LOC: EMS 16:58
DX: F15.10 Other stimulant abuse, uncomplicated (principal); R07.89 Other chest pain; R51.9 Headache, unspecified; I11.0 Hypertensive heart disease with heart failure; I50.9 Heart failure, unspecified; I27.20 Pulmonary hypertension, unspecified; F17.210 Nicotine dependence, cigarettes, uncomplicated; Z98.890 Other specified postprocedural states; Z79.899 Other long term (current) drug therapy
CPT/HCPCS: 71045; 80048; 82550; 83880; 84484; 85025; 85610; 85730; 93005; 99285; 36415-L1; 36415-TC

== ENCOUNTER 2024-06-04 03:10 | Emergency (ER) | payer OTHER ==
[~2024-06-04] VITALS: Ht 162.6 cm; Wt 70.0 kg
[2024-06-04 03:34] VITALS: BP 151/91; PULSE 90; RESP 16; TEMP 95.2; O2SAT 94
[2024-06-04] MEDS ORDERED: BENZ-227 PO (04:39)
[2024-06-04 05:41] LABS: COVID AG,FIA SOURCE NASAL SWAB
[2024-06-04 05:56] LABS: INFLUENZA TYPE A NEGATIVE FOR TYPE A (NEGATIVE); INFLUENZA TYPE B NEGATIVE FOR TYPE B (NEGATIVE)
[2024-06-04 06:08] LABS: SARS-COV2 (COVID) ANTIGEN,FIA Positive (Negative)
== END 2024-06-04 05:50 | disposition home or self-care (01) ==
LOC: EMS 03:10
DX: J06.9 Acute upper respiratory infection, unspecified (principal); I11.0 Hypertensive heart disease with heart failure; I50.9 Heart failure, unspecified; I27.20 Pulmonary hypertension, unspecified; F17.210 Nicotine dependence, cigarettes, uncomplicated; Z79.899 Other long term (current) drug therapy; Z20.822 Contact with and (suspected) exposure to COVID-19
CPT/HCPCS: 71045; 87804; 93005; 99285